=== PATIENT | male | born 1935 | race Caucasian/White ===

== ENCOUNTER 2017-10-11 08:55 | Emergency (ER) | payer MEDICARE, OTHER ==
[~2017-10-11] VITALS: Ht 170.2 cm; Wt 78.9 kg
[~2017-10-11 08:55] MED LIST: HYDROCHLOROTH12.5 M1 PO; LISINOPRIL10 MG PO; METOPROLOL SUCC50 MG PO; SIMVASTATIN40 MG PO; ULTRAM50 MG PO
[2017-10-11] MEDS ORDERED: HYDROCHLOROTH12.5 M1 PO (09:07)
[2017-10-11] MEDS ORDERED: ULTRAM50 MG PO (10:08)
--- NOTE | 2017-10-11 22:07 | EKG ---
[facility] [address] [place], [place] [address] Signed Sinus tachycardia Otherwise normal ECG Confirmed by SALOMÓN COLUNGA MD ([id number]) on 10/11/2017 10:07:43 PM Electronically Signed By: SALOMÓN COLUNGA MD 10/11/17 2207 PATIENT NAME: LONDON KELLY Electrocardiogram DATE OF : 39 PHYSICIAN: SALOMÓN COLUNGA MD REPORT #: [id number] REPORT IS CONFIDENTIAL AND NOT TO BE RELEASED WITHOUT AUTHORIZATION
== END 2017-10-11 10:15 | disposition home or self-care (01) ==
LOC: ED 08:55
DX: S20.212A Contusion of left front wall of thorax, initial encounter (principal); Z87.891 Personal history of nicotine dependence; Z79.899 Other long term (current) drug therapy; W19.XXXA Unspecified fall, initial encounter
CPT/HCPCS: 71101; 93005; 93010; 99283